=== PATIENT | male | born 1985 | race Caucasian/White ===

== ENCOUNTER 2018-01-05 09:18 | Emergency (ER) | payer BC ==
[~2018-01-05] VITALS: Ht 180.3 cm; Wt 88.5 kg
[2018-01-05] MEDS ORDERED: HYDROCODONE/APAP 5/325MG 1 EACH TABLET ONE (09:51)
[2018-01-05] MEDS ORDERED: HYDROCODONE/APAP 5/325MG 1 EACH TABLET PO ONE (10:00)
[2018-01-05 12:01] VITALS: BP 124/76
== END 2018-01-05 12:00 | disposition home or self-care (01) ==
LOC: ER 09:22
DX: S62.001A Unspecified fracture of navicular [scaphoid] bone of right wrist, initial encounter for closed fracture (principal); S93.402A Sprain of unspecified ligament of left ankle, initial encounter; S63.502A Unspecified sprain of left wrist, initial encounter; V87.8XXA Person injured in other specified noncollision transport accidents involving motor vehicle (traffic), initial encounter; Y93.55 Activity, bike riding; Y92.89 Other specified places as the place of occurrence of the external cause; Y99.8 Other external cause status
CPT/HCPCS: 73100-TC; 73600-TC; A4606; Z7610